=== PATIENT | female | born 1995 | race Two or more races ===

== ENCOUNTER 2017-05-31 09:18 | Emergency (ER) | payer OTHER ==
[2017-05-31 09:29] VITALS: RESP 16
[2017-05-31] MEDS ORDERED: ONDANSETRON 4 MG/2 ML VIAL IVP ONE (09:47)
[2017-05-31] MEDS ORDERED: fentaNYL 100 MCG/2 ML INJ IVP ONE (09:47)
[2017-05-31 09:52] LABS: % IMMATURE GRANULYOCYTES 0.3 % (0.0-1.1); ABSOLUTE IMMATURE GRANULOCYTES 0.04 10^3/uL (0.00-0.10); ADD DIFF? NO; ADD MORPH? NO; ADD SCAN? NO; ATYPICAL LYMPHOCYTE FLAG 0 (0-99); FRAGMENT RBC FLAG 0 (0-99); HEMATOCRIT 44.8 % (38.0-47.0); HEMOGLOBIN 16.3 g/dL (12.6-16.3); LEFT SHIFT FLG 0 (0-99); LIPEMIA HEMOLYSIS FLAG 90 (0-99); MEAN CELL HEMOGLOBIN 31.1 pg (27.9-34.1); MEAN CELL HEMOGLOBIN CONCENTR. 36.4 g/dL (32.4-36.7); MEAN CELL VOLUME 85.5 fL (81.5-99.8); MEAN PLATELET VOLUME 11.3 fL (8.7-11.7); PLATELET CLUMPS FLAG 10 (0-99); PLATELET COUNT 223 10^3/uL (150-400); RED BLOOD CELL COUNT 5.24 10^6/uL (4.18-5.33)
[2017-05-31 10:06] LABS: ANION GAP 16 mEq/L (8-16); CALCIUM 9.5 mg/dL (8.5-10.4); CARBON DIOXIDE 17 mEq/l (22-31); CHLORIDE 107 mEq/L (97-110); CREATININE 0.6 mg/dL (0.6-1.0); GLOMERULAR FILTRATION RATE > 60; GLUCOSE 99 mg/dL (70-100); POTASSIUM 4.7 mEq/L (3.5-5.2); SODIUM 140 mEq/L (134-144)
[2017-05-31] MEDS ORDERED: NS 1,000 ML IV ONE (10:14)
[2017-05-31 10:44] LABS: COLOR YELLOW; LEUKOCYTE ESTERASE,URINE NEGATIVE (NEGATIVE); NITRITE,URINE NEGATIVE (NEGATIVE)
[2017-05-31 11:00] LABS: BACTERIA 3+ /hpf (NONE SEEN); MUCUS 3+ /lpf (NONE-1+); RBC,URINE 50-182 /hpf (0-3)
[2017-05-31] MEDS ORDERED: KETOROLAC 15 MG/1 ML SDV IVP ONE (11:00)
[2017-05-31 12:30] VITALS: BP 100/65; PULSE 68; O2SAT 99
[2017-05-31] MEDS ORDERED: TAMSULOSIN HCL 0.4 MG CAP PO ONE (12:47)
--- NOTE | 2017-05-31 12:51 | EDPHY ---
H & P Stated Complaint: RLQ pain x 6 days, - Personal History LMP (Females 10-55): Over 28 Days Ago Current Tetanus Diphtheria and Acellular Pertussis (TDAP): Yes - Medical/Surgical History Other PMH: asthma - Social History Smoking Status: Never smoked Time Seen by Provider: 05/31/17 09:39 HPI/ROS: CHIEF COMPLAINT: abdominal pain HISTORY OF PRESENT ILLNESS: 21-year-old female presents emergency department complaining of intermittent left lower quadrant and left flank pain x1 week. Patient states her pain comes and goes, this morning it came and is more severe than usual. Patient denies urinary frequency, urgency or dysuria, no hematuria. She reports nausea and vomiting from the pain. Pain is constant, no relief. She reports no appetite. She does feel chills today. Pt has no history of kidney stones, her father does. Patient denies vaginal discharge. She reports she is not sexually active. REVIEW OF SYSTEMS: A comprehensive 10 point review of systems is otherwise negative aside from elements mentioned in the history of present illness. (Shwetha Cummins) - Physical Exam Exam: Physical Exam Gen: Alert and Oriented, crying, grimacing HEENT: PERRL, moist mucous membranes NECK: no meningismus CV: regular rate and regular rhythm PULM: CTAB, no wheezes ABDOMEN: soft, left lower quadrant tenderness to palpation, BS present BACK: Left CVA tenderness NEURO: Neurologically grossly intact EXTREMITIES: normal appearing SKIN: no rash or break in skin on exposed skin PSYCH: answers questions appropriately. (Shwetha Cummins) Constitutional: Initial Vital Signs Temperature (C) 36.4 C 05/31/17 09:22 Heart Rate 78 05/31/17 09:22 Respiratory Rate 16 05/31/17 09:22 Blood Pressure 135/71 H 05/31/17 09:22 O2 Sat (%) 100 05/31/17 09:22 O2 Delivery Mode Room Air Allergies/Adverse Reactions: No Known Allergies Allergy (Unverified 05/31/17 09:21) Home Medications: Medication Instructions Recorded Cephalexin [Keflex] 500 mg PO BID 7 Days 05/31/17 Hydrocodone/APAP 5/325 [[place] 1 tab PO Q4H PRN #14 tab 05/31/17 5/325] Mometasone/Formoterol [Dulera 200 05/31/17 Mcg/5 Mcg Inhaler] Ondansetron Odt [Zofran Odt] 4 mg PO Q6-8PRN PRN #10 tab 05/31/17 Tamsulosin HCl [Flomax 0.4 MG (*)] 0.4 mg PO DAILY #7 cap 05/31/17 Medical Decision Making - Diagnostics Imaging: Discussed imaging studies w/ call center agent Radiologist ED Course/Re-evaluation: IV established, CBC, chemistry panel and urinalysis ordered. Patient is given 4 mg of Zofran and 50 mcg of fentanyl p.o., kidney function tests are normal and patient is given 15 mg of IV Toradol. Urinalysis shows 50-182 red blood cells. I am suspicious the patient has a kidney stone. CT KUB ordered. Patient has a 4 mm stone in her left UPJ with mild hydronephrosis. Urinalysis shows 5-10 WBCs. Patient will be treated with Keflex. I will send her home with a prescription for [place], Flomax and Zofran. She has been referred to the urologist. She will call to schedule an appointment at 1st available appointment on Friday. She is given return precautions for any fevers, pain that is not controlled, unable to urinate. Patient is discharged with a urine strainer. (Shwetha Cummins) Differential Diagnosis: The differential diagnosis for the patient's flank pain included but was not limited to musculoskeletal causes, kidney stone, pyelonephritis, shingles, diverticulitis, appendicitis, and aortic aneurysm. (Shwetha Cummins) - Data Points Laboratory Results: Laboratory Results 05/31/17 09:45 05/31/17 09:45 Medications Given: Discontinued Medications Fentanyl (Sublimaze) 50 mcg IVP EDNOW ONE Stop: 05/31/17 09:48 Last Admin: 05/31/17 10:04 Dose: 50 mcg Sodium Chloride (Ns) 1,000 mls @ 0 mls/hr IV EDNOW ONE; Wide Open PRN Reason: Protocol Stop: 05/31/17 10:15 Last Admin: 05/31/17 10:17 Dose: 1,000 mls Ketorolac Tromethamine (Toradol) 15 mg IVP EDNOW ONE Stop: 05/31/17 11:01 Last Admin: 05/31/17 11:23 Dose: 15 mg Ondansetron HCl (Zofran) 4 mg IVP EDNOW ONE Stop: 05/31/17 09:48 Last Admin: 05/31/17 10:04 Dose: 4 mg Tamsulosin HCl (Flomax) 0.4 mg PO EDNOW ONE Stop: 05/31/17 12:48 Last Admin: 05/31/17 12:57 Dose: 0.4 mg Departure - Departure Disposition: Home, Routine, Self-Care Clinical Impression: Left ureteral stone Condition: Good Instructions: Kidney Stones (ED), How to Strain Your Urine (ED) Additional Instructions: Kidney stone: Take your antibiotic as prescribed. Take hydrocodone as needed for severe pain. Use Zofran as needed for nausea. Take ibuprofen 600 mg every 6-8 hours as needed for moderate pain. This will also help with inflammation. Take Flomax as directed. Followup with urology as directed for symptoms not improving. Strain urine. Return to the emergency department if you have worsening pain, fevers, persistent vomiting, or other concerns. Referrals: Felton Caputo MD [Medical Doctor] - As per Instructions (Urologist on-call) Prescriptions: Cephalexin [Keflex] 500 mg PO BID 7 Days Hydrocodone/APAP 5/325 [[place] 5/325] 1 tab PO Q4H PRN #14 tab PRN Reason: Pain, Moderate Ondansetron Odt [Zofran Odt] 4 mg PO Q6-8PRN PRN #10 tab PRN Reason: Nausea/Vomiting, Can'T Take Po Tamsulosin HCl [Flomax 0.4 MG (*)] 0.4 mg PO DAILY #7 cap
[2017-05-31 13:17] VITALS: TEMP 98.2
== END 2017-05-31 13:17 | disposition home or self-care (01) ==
DX: N20.1 Calculus of ureter (principal); J45.909 Unspecified asthma, uncomplicated; E86.9 Volume depletion, unspecified
CPT/HCPCS: 96374; J1885; J2405; J3010

== ENCOUNTER 2019-01-12 09:08 | Inpatient (IN) | payer OTHER ==
[2019-01-12] MEDS ORDERED: HALOPERIDOL LACT 5 MG/ML INJ IVP ONE (09:22)
[2019-01-12] MEDS ORDERED: NS 1,000 ML IV ONE ×3 (09:22→15:36)
--- NOTE | 2019-01-12 09:25 | EDPHY ---
H & P Stated Complaint: L flank/Abd pain Time Seen by Provider: 01/12/19 09:19 HPI/ROS: CHIEF COMPLAINT: Abdominal pain, flank pain since this morning HISTORY OF PRESENT ILLNESS: 23-year-old female male with prior history of nephrolithiasis with spontaneous passage, arrives via private vehicle complaining of acute left flank and abdominal pain that started approximately 4: 00 a.m. today. She initially went to Urgent Care was referred to the ER for further evaluation. Patient also notes increase in urinary frequency within the past 1-2 days. Positive nausea vomiting. Positive retching. Denies: Rash, urinary abnormality, fever, chills, flu-like symptoms, recent illness, dysuria REVIEW OF SYSTEMS: 10 systems reviewed and negative with the exception of the elements mentioned in the history of present illness PAST MEDICAL & SURGICAL HISTORY: prior nephrolithiasis with spontaneous passage. No urologic follow-up. SOCIAL HISTORY:Nonsmoker. No drug use. PHYSICAL EXAM (Prior to examination, patient consented to physical exam, hands were washed and my usual and customary physical exam procedures followed) 1) GENERAL: Well-developed, well-nourished, retching, hyperventilating, crying, moaning, screaming. 2) HEAD: Normocephalic, atraumatic 3) HEENT: Pupils equal, round, reactive to light bilaterally. Sclera anicteric. 4) NECK: Full range of motion, no meningeal signs. 5) LUNGS: Clear auscultation bilaterally, no wheezes, no rhonchi, no retractions. 6) HEART: Regular rate and rhythm, no murmur, no heave, no gallop. 7) ABDOMEN: No guarding, no rebound, no focal tenderness, negative McBurney's, negative Irizarry's, negative Rovsing's, negative peritoneal sign, I am unable to elicit any abdominal pain on exam 8) MUSCULOSKELETAL: Moving all extremities, no focal areas of tenderness, no obvious trauma. No peripheral edema or discoloration. 9) BACK: Positive left CVA tenderness which elicits quite a bit of discomfort. No midline vertebral tenderness, no fluctuance, no step-off, no obvious trauma , no visual or palpable abnormality. 10) SKIN: No rash, no petechiae. 11) Psychiatric: Patient is oriented X 3, there is no agitation. DIFFERENTIAL DIAGNOSIS: In no particular order including but not limited to nephrolithiasis, pyelonephritis, perinephric abscess, ovarian pathology, ectopic - Personal History LMP (Females 10-55): Extended Cycle BCP/Inj Current Tetanus Diphtheria and Acellular Pertussis (TDAP): Yes - Medical/Surgical History Hx Asthma: No Hx Chronic Respiratory Disease: No Hx Diabetes: No Hx Cardiac Disease: No Hx Renal Disease: No Hx Cirrhosis: No Hx Alcoholism: No Hx HIV/AIDS: No Hx Splenectomy or Spleen Trauma: No Other PMH: asthma, kidney stones. - Social History Smoking Status: Never smoked Constitutional: Initial Vital Signs Temperature (C) 36.6 C 01/12/19 09:11 Heart Rate 84 01/12/19 09:11 Respiratory Rate 24 H 01/12/19 09:11 Blood Pressure 123/71 H 01/12/19 09:11 O2 Sat (%) 99 01/12/19 09:11 O2 Delivery Mode Room Air Allergies/Adverse Reactions: No Known Allergies Allergy (Verified 01/12/19 15:20) Home Medications: Medication Instructions Recorded Albuterol Sulfate [ALBUTEROL 1.25 mg IH HS 01/12/19 SULFATE 1.25 MG/3 ML] Albuterol Sulfate [Albuterol 1 puffs IH DAILY 01/12/19 Sulfate Hfa] Budesonide/Formoterol 160/4.5 1 puffs IH DAILY 01/12/19 [Symbicort 160-4.5 Mcg Inh (*)] D-Mannose [Mannxtra] 300 gm PO ONCE PRN 01/12/19 Ethinyl Estradiol/Drospirenone 1 tab PO HS 01/12/19 [[place] 3 mg-0.03 mg Tablet] Famotidine [Pepcid 20 MG (*)] 20 mg PO DAILY PRN 01/12/19 Lisdexamfetamine Dimesylate 30 mg PO DAILY PRN 01/12/19 [Vyvanse] Simethicone [Gas-X] 125 mg PO DAILY PRN 01/12/19 Medical Decision Making - Diagnostics Imaging Results: Imaging Impressions Abdomen/Pelvis CT 01/12/19 10:53 Impression: 1. 5 mm proximal left ureteral calculus resulting in moderate left hydronephrosis. 2. Bilateral nephrolithiasis. Findings discussed with Emergency Department physician assistant chief train dispatcher, Genesis Rooney on 01/12/2019, 11:33. Attention: This CT examination is specifically designed to evaluate patients who are clinically suspected of having acute obstructive uropathy. This examination does not use radiographic contrast, and as such, provides only a limited evaluation of the abdomen, pelvis and retroperitoneum. If there is further clinical suspicion for pathological conditions other than obstructive uropathy, a complete CT evaluation of the abdomen and pelvis utilizing intravenous, oral, and rectal contrast should be considered. Images reviewed myself ED Course/Re-evaluation: 9:23 a.m.: Examination of the patient is limited at this time as she is retching, crying, hyperventilating, guarding her abdomen will not allow me to palpate her abdomen. Will administer analgesia and re-evaluate. Care of patient under supervision of secondary supervising physician Dr Rosalee Rousseau whom I discussed case. 9:47 a.m.: Nursing staff unable to establish IV access. Patient remains uncomfortable, retching, crying, hyperventilating. She will not allow me to examine her abdomen. I recommended intranasal Ativan which she is agreeable with. 10:15 a.m.: Re-evaluation, patient more calm with intranasal Ativan. She allows me to examine her abdomen which is soft no guarding no rebound. Negative McBurney's. Negative Irizarry's. She has continued left CVA tenderness on exam. 10:45 a.m.: Serum laboratory studies are becoming available at this time. There was a delay due to difficulty in establishing IV access. At this time test is negative. This is the only serum study available at this time. Will obtain CT abdomen and pelvis without contrast for possible nephrolithiasis history given her history of nephrolithiasis. Patient unable provide urine sample at this time. Receiving IV fluids 11:50 a.m.: Re-evaluation, patient is sleeping , easily woken. Patient unable provide urine sample at this time. Receiving IV fluids. Patient noted to have elevated white blood cell count which may be secondary to acute pyelonephritis, may be secondary to acute neutrophil demargination the presence of severe pain, retching when blood work was drawn. 12:30 p.m.: Re-evaluation, patient is sleeping, easily woken. Patient unable provide urine sample at this time. Receiving IV fluids 1:20 p.m.: Re-evaluation, patient is sleeping, easily awoken. Requesting further analgesia. Re-evaluation, she has continued positive CVA tenderness on the left side. She is ready to provide a urine sample. 2:40 p.m.: Patient's urinalysis results positive for leukocytes, nitrates, 50- 182 WBCs. She is complaining of continued pain. White count [id number]. Recommended admission to hospital for pain control, antibiotics for suspected pyelonephritis with concurrent ureterolithiasis and nephrolithiasis. Will consult Urology and hospitalist 2:50 p.m.: Consultation with hospitalist is. Awaiting urology call back. 3:16 p.m.: Consultation with on-call Urology Dr. Sweta Phillip who recommends percutaneous nephrostomy tube via interventional Radiology and he will consult for Urology. - Data Points Laboratory Results: Laboratory Results 01/12/19 10:30 01/12/19 10:30 01/12/19 01/12/19 01/12/19 11:09 10:30 10:30 WBC 19.44 10^3/uL H 10^3/uL (3.80-9.50) RBC 4.61 10^6/uL 10^6/uL (4.18-5.33) Hgb 14.3 g/dL g/dL (12.6-16.3) POC Hgb 13.9 gm/dL gm/dL (12.6-16.3) Hct 41.5 % % (38.0-47.0) POC Hct 41 % % (38-47) MCV 90.0 fL fL (81.5-99.8) MCH 31.0 pg pg (27.9-34.1) MCHC 34.5 g/dL g/dL (32.4-36.7) RDW 13.2 % % (11.5-15.2) Plt Count 257 10^3/uL 10^3/uL (150-400) MPV 10.3 fL fL (8.7-11.7) Neut % (Auto) 87.3 % H % (39.3-74.2) Lymph % (Auto) 7.2 % L % (15.0-45.0) [place] % (Auto) 3.9 % L % (4.5-13.0) Eos % (Auto) 0.7 % % (0.6-7.6) Baso % (Auto) 0.3 % % (0.3-1.7) Nucleat RBC Rel Count 0.0 % % (0.0-0.2) Absolute Neuts (auto) 17.00 10^3/uL H 10^3/uL (1.70-6.50) Absolute Lymphs (auto) 1.40 10^3/uL 10^3/uL (1.00-3.00) Absolute Monos (auto) 0.75 10^3/uL 10^3/uL (0.30-0.80) Absolute Eos (auto) 0.13 10^3/uL 10^3/uL (0.03-0.40) Absolute Basos (auto) 0.05 10^3/uL 10^3/uL (0.02-0.10) Absolute Nucleated RBC 0.00 10^3/uL 10^3/uL (0-0.01) Immature Gran % 0.6 % % (0.0-1.1) Immature Gran # 0.11 10^3/uL H 10^3/uL (0.00-0.10) POC Sodium 140 mEq/L mEq/L (135-145) Sodium 134 mEq/L L mEq/L (135-145) POC Potassium 4.2 mEq/L mEq/L (3.3-5.0) Potassium 5.1 mEq/L mEq/L (3.5-5.2) POC Chloride 107 mEq/L mEq/L (97-110) Chloride 108 mEq/L mEq/L (97-110) Carbon Dioxide 15 mEq/l L mEq/l (22-31) POC Total CO2 18 mEq/L L mEq/L (22-31) Anion Gap 11 mEq/L mEq/L (6-14) POC BUN 8 mg/dL mg/dL (7-23) BUN 9 mg/dL mg/dL (7-23) Creatinine 0.7 mg/dL mg/dL (0.6-1.0) POC Creatinine 0.7 mg/dL mg/dL (0.6-1.0) Estimated GFR > 60 Glucose 103 mg/dL H mg/dL (70-100) POC Glucose 99 mg/dL mg/dL (70-100) Calcium 9.4 mg/dL mg/dL (8.5-10.4) Total Bilirubin 1.5 mg/dL H mg/dL (0.1-1.4) Conjugated Bilirubin 0.9 mg/dL H mg/dL (0.0-0.5) Unconjugated Bilirubin 0.6 mg/dL mg/dL (0.0-1.1) AST 45 IU/L IU/L (14-46) ALT 20 IU/L IU/L (9-52) Alkaline Phosphatase 70 IU/L IU/L (38-126) Total Protein 8.0 g/dL g/dL (6.3-8.2) Albumin 4.3 g/dL g/dL (3.5-5.0) Lipase 53 IU/L IU/L (23-300) Beta HCG, Qual Specimen Hemolysis 183 Urine Color Urine Appearance Urine pH Ur Specific [place] Urine Protein Urine Ketones Urine Blood Urine Nitrate Urine Bilirubin Urine Urobilinogen Ur Leukocyte Esterase Urine RBC Urine WBC Ur Epithelial Cells Urine Bacteria Urine Mucus Ur Culture Indicated? Urine Glucose 01/12/19 01/12/19 01/12/19 09:41 09:41 09:25 WBC RBC Hgb POC Hgb Hct POC Hct MCV MCH MCHC RDW Plt Count MPV Neut % (Auto) Lymph % (Auto) [place] % (Auto) Eos % (Auto) Baso % (Auto) Nucleat RBC Rel Count Absolute Neuts (auto) Absolute Lymphs (auto) Absolute Monos (auto) Absolute Eos (auto) Absolute Basos (auto) Absolute Nucleated RBC Immature Gran % Immature Gran # POC Sodium Sodium POC Potassium Potassium POC Chloride Chloride Carbon Dioxide POC Total CO2 Anion Gap POC BUN BUN Creatinine POC Creatinine Estimated GFR Glucose POC Glucose Calcium Total Bilirubin Conjugated Bilirubin Unconjugated Bilirubin AST ALT Alkaline Phosphatase Total Protein Albumin Lipase Beta HCG, Qual NEGATIVE Specimen Hemolysis Urine Color YELLOW Urine Appearance HAZY Urine pH 7.0 (5.0-7.5) Ur Specific [place] 1.014 (1.002-1.030) Urine Protein NEGATIVE (NEGATIVE) Urine Ketones 1+ H (NEGATIVE) Urine Blood 2+ H (NEGATIVE) Urine Nitrate POSITIVE H (NEGATIVE) Urine Bilirubin NEGATIVE (NEGATIVE) Urine Urobilinogen NEGATIVE EU EU (0.2-1.0) Ur Leukocyte Esterase 2+ H (NEGATIVE) Urine RBC 10-15 /hpf H /hpf (0-3) Urine WBC 50-182 /hpf H /hpf (0-3) Ur Epithelial Cells TRACE /lpf /lpf (NONE-1+) Urine Bacteria 1+ /hpf H /hpf (NONE SEEN) Urine Mucus 1+ /lpf /lpf (NONE-1+) Ur Culture Indicated? Pending INDICATED H (NI) Urine Glucose NEGATIVE (NEGATIVE) Medications Given: Discontinued Medications Haloperidol Lactate (Haldol Injection) 2.5 mg IVP EDNOW ONE Stop: 01/12/19 09:23 Last Admin: 01/12/19 09:38 Dose: 2.5 mg Sodium Chloride (Ns) 1,000 mls @ 0 mls/hr IV ONCE ONE PRN Reason: Wide Open Stop: 01/12/19 09:23 Last Admin: 01/12/19 09:39 Dose: 1,000 mls Lidocaine HCl 60 mg/ Sodium (Chloride) 106 mls @ 600 mls/hr IV EDNOW ONE Stop: 01/12/19 11:11 Last Admin: 01/12/19 11:51 Dose: 106 mls Sodium Chloride (Ns) 1,000 mls @ 3,000 mls/hr IV EDNOW ONE Stop: 01/12/19 11:20 Last Admin: 01/12/19 11:25 Dose: 1,000 mls Ketorolac Tromethamine (Toradol) 15 mg IVP EDNOW ONE Stop: 01/12/19 11:02 Last Admin: 01/12/19 11:24 Dose: 15 mg Lorazepam (Ativan Injection) 2 mg NASAL EDNOW ONE Stop: 01/12/19 09:48 Last Admin: 01/12/19 09:50 Dose: 2 mg Oxycodone/Acetaminophen (Percocet 5/325) 1 tab PO EDNOW ONE Stop: 01/12/19 13:39 Last Admin: 01/12/19 13:40 Dose: 1 tab Tamsulosin HCl (Flomax) 0.4 mg PO EDNOW ONE Stop: 01/12/19 13:29 Last Admin: 01/12/19 13:40 Dose: 0.4 mg Point of Care Test Results: Chemistry 01/12/19 11:09 POC Sodium 140 mEq/L mEq/L (135-145) POC Potassium 4.2 mEq/L mEq/L (3.3-5.0) POC Chloride 107 mEq/L mEq/L (97-110) POC Total CO2 18 mEq/L L mEq/L (22-31) POC BUN 8 mg/dL mg/dL (7-23) POC Creatinine 0.7 mg/dL mg/dL (0.6-1.0) POC Glucose 99 mg/dL mg/dL (70-100) ISTAT H&H 01/12/19 11:09 POC Hgb 13.9 gm/dL gm/dL (12.6-16.3) POC Hct 41 % % (38-47) Departure - Departure Disposition: [facility] Inpatient Acute Clinical Impression: Acute pyelonephritis, Ureterolithiasis Condition: Fair
[2019-01-12] MEDS ORDERED: LORazepam 2 MG/ML INJ NASAL ONE (09:47)
[2019-01-12] MEDS ORDERED: LIDOCAINE IV ONE (11:01)
[2019-01-12] MEDS ORDERED: KETOROLAC 15 MG/1 ML SDV IVP ONE (11:01)
[2019-01-12] MEDS ORDERED: NS IV ONE (11:01)
[2019-01-12 11:22] LABS: PLATELET COUNT 257 10^3/uL (150-400)
[2019-01-12] MEDS ORDERED: TAMSULOSIN HCL 0.4 MG CAP PO ONE (13:28)
[2019-01-12] MEDS ORDERED: OXYCODONE/APAP 5/325 TAB PO ONE (13:38)
[2019-01-12] MEDS ORDERED: ONDANSETRON 4 MG/2 ML VIAL IVP PRN (15:05)
[2019-01-12] MEDS ORDERED: ONDANSETRON DISINTEGRATING 4 MG TAB PO PRN (15:05)
[2019-01-12] MEDS ORDERED: NS 1,000 ML IV SCH ×2 (15:15→17:15)
[2019-01-12] MEDS ORDERED: NS 1,800 ML IV ONE (15:47)
--- NOTE | 2019-01-12 15:50 | PDGENHP ---
<Karrie Amador - Last Filed: 01/12/19 16:15> History and Physical - Chief Complaint Acute left sided flank pain - History of Present Illness 23 y/o female w/hx of nephrolithiasis w/spontaneous passage (last one presented here in 2016) and asthma presents w/acute abdominal and left sided flank pain. Onset was approximately 4:00am. Endorses nausea, vomiting, severe pain. Normal urination, no dysuria. Normal bowel movements. Denies CP, palpitations, fever or chills. Abdominal CT w/o contrast demonstrate 5 mm proximal left ureteral calculus resulting in moderate left hydronephrosis and bilateral nephrolithiasis. She is being admitted for treatment and monitoring of renal stone and pyelonephritis. History Information - Allergies/Home Medication List Allergies/Adverse Reactions: No Known Allergies Allergy (Verified 01/12/19 15:20) Home Medications: Albuterol Sulfate [Albuterol Sulfate Hfa] 1 puffs IH DAILY 01/12/19 [Last Taken 01/11/19] Albuterol [Proventil Neb] 3 ml IH HS 01/12/19 [Last Taken Unknown] Budesonide/Formoterol 160/4.5 [Symbicort 160-4.5 Mcg Inh (*)] 1 puffs IH DAILY 01/12/19 [Last Taken 01/11/19] D-Mannose [Mannxtra] 300 gm PO ONCE PRN 01/12/19 [Last Taken Unknown] Ethinyl Estradiol/Drospirenone [[place] 3 mg-0.03 mg Tablet] 1 tab PO HS [Last Taken 01/11/19 21:00] Famotidine [Pepcid 20 MG (*)] 20 mg PO DAILY PRN 01/12/19 [Last Taken 01/09/19] Lisdexamfetamine Dimesylate [Vyvanse] 30 mg PO DAILY PRN 01/12/19 [Last Taken ] Simethicone [Gas-X] 125 mg PO DAILY PRN 01/12/19 [Last Taken 01/09/19] I have personally reviewed and updated: family history, medical history, social history, surgical history - Past Medical History asthma Additional medical history: Hx of nephroliathisis w/spontaneous passage - Surgical History Reports: no pertinent surgical hx - Family History Additional family history: Father w/nephroliathisis - Social History Smoking Status: Never smoked Alcohol Use: Occasionally Drug Use: None Additional social history: Recently graduated from [employer] in September. Had 3 majors: psychology, communication, engineering. Currently job searching. Review of Systems Review of Systems: ROS: 10pt was reviewed & negative except for what was stated in HPI & below Physical Exam Physical Exam: Lab data and imaging reviewed. WBC: 19.44 w/ left shift Na: 134 K: 5.1 BUN/Cr: 9/0.7 UA: + ketones, blood, nitrate, leukocyte esterase, RBC, WBC, bacteria Temp Pulse Resp BP Pulse Ox 37 C 77 16 118/78 98 01/12/19 13:41 01/12/19 13:41 01/12/19 13:41 01/12/19 13:41 01/12/19 13:41 Constitutional: uncomfortable (Found clutching her abdomen) Eyes: PERRL, anicteric sclera, EOMI Ears, Nose, Mouth, Throat: moist mucous membranes, hearing normal, ears appear normal, no oral mucosal ulcers Cardiovascular: regular rate and rhythym, no murmur, rub, or gallop, tachycardia , No edema Peripheral Pulses: 2+: dorsalis-pedis (R), dorsalis-pedis (L) Respiratory: reduced air movement, other (Hyperventilating) Gastrointestinal: no palpable masses, guarding, other (Hypoactive BS) Genitourinary: other (L +CVAT) Skin: warm, normal color, no rashes or abrasions, no fluctuance, no induration, No mottled Musculoskeletal: full muscle strength, no muscle tenderness, normal joint ROM, no joint effusions Neurologic: AAOx3, sensation intact bilaterally, CN II-XII Intact Psychiatric: interacting appropriately, not anxious, not encephalopathic, thought process linear Lymph, Heme, Immunologic: no cervical LAD, no supraclavicular LAD Lab Data & Imaging Review 01/12/19 10:30 01/12/19 10:30 WBC 19.44 10^3/uL (3.80-9.50) H 01/12/19 10:30 RBC 4.61 10^6/uL (4.18-5.33) 01/12/19 10:30 Hgb 14.3 g/dL (12.6-16.3) 01/12/19 10:30 POC Hgb 13.9 gm/dL (12.6-16.3) 01/12/19 11:09 Hct 41.5 % (38.0-47.0) 01/12/19 10:30 POC Hct 41 % (38-47) 01/12/19 11:09 MCV 90.0 fL (81.5-99.8) 01/12/19 10:30 MCH 31.0 pg (27.9-34.1) 01/12/19 10:30 MCHC 34.5 g/dL (32.4-36.7) 01/12/19 10:30 RDW 13.2 % (11.5-15.2) 01/12/19 10:30 Plt Count 257 10^3/uL (150-400) 01/12/19 10:30 MPV 10.3 fL (8.7-11.7) 01/12/19 10:30 Neut % (Auto) 87.3 % (39.3-74.2) H 01/12/19 10:30 Lymph % (Auto) 7.2 % (15.0-45.0) L 01/12/19 10:30 [place] % (Auto) 3.9 % (4.5-13.0) L 01/12/19 10:30 Eos % (Auto) 0.7 % (0.6-7.6) 01/12/19 10:30 Baso % (Auto) 0.3 % (0.3-1.7) 01/12/19 10:30 Nucleat RBC Rel Count 0.0 % (0.0-0.2) 01/12/19 10:30 Absolute Neuts (auto) 17.00 10^3/uL (1.70-6.50) H 01/12/19 10:30 Absolute Lymphs (auto) 1.40 10^3/uL (1.00-3.00) 01/12/19 10:30 Absolute Monos (auto) 0.75 10^3/uL (0.30-0.80) 01/12/19 10:30 Absolute Eos (auto) 0.13 10^3/uL (0.03-0.40) 01/12/19 10:30 Absolute Basos (auto) 0.05 10^3/uL (0.02-0.10) 01/12/19 10:30 Absolute Nucleated RBC 0.00 10^3/uL (0-0.01) 01/12/19 10:30 Immature Gran % 0.6 % (0.0-1.1) 01/12/19 10:30 Immature Gran # 0.11 10^3/uL (0.00-0.10) H 01/12/19 10:30 VBG Lactic Acid 2.4 mmol/L (0.7-2.1) H 01/12/19 14:32 POC Sodium 140 mEq/L (135-145) 01/12/19 11:09 Sodium 134 mEq/L (135-145) L 01/12/19 10:30 POC Potassium 4.2 mEq/L (3.3-5.0) 01/12/19 11:09 Potassium 5.1 mEq/L (3.5-5.2) 01/12/19 10:30 POC Chloride 107 mEq/L (97-110) 01/12/19 11:09 Chloride 108 mEq/L (97-110) 01/12/19 10:30 Carbon Dioxide 15 mEq/l (22-31) L 01/12/19 10:30 POC Total CO2 18 mEq/L (22-31) L 01/12/19 11:09 Anion Gap 11 mEq/L (6-14) 01/12/19 10:30 POC BUN 8 mg/dL (7-23) 01/12/19 11:09 BUN 9 mg/dL (7-23) 01/12/19 10:30 Creatinine 0.7 mg/dL (0.6-1.0) 01/12/19 10:30 POC Creatinine 0.7 mg/dL (0.6-1.0) 01/12/19 11:09 Estimated GFR > 60 01/12/19 10:30 Glucose 103 mg/dL (70-100) H 01/12/19 10:30 POC Glucose 99 mg/dL (70-100) 01/12/19 11:09 Calcium 9.4 mg/dL (8.5-10.4) 01/12/19 10:30 Total Bilirubin 1.5 mg/dL (0.1-1.4) H 01/12/19 10:30 Conjugated Bilirubin 0.9 mg/dL (0.0-0.5) H 01/12/19 10:30 Unconjugated Bilirubin 0.6 mg/dL (0.0-1.1) 01/12/19 10:30 AST 45 IU/L (14-46) 01/12/19 10:30 ALT 20 IU/L (9-52) 01/12/19 10:30 Alkaline Phosphatase 70 IU/L (38-126) 01/12/19 10:30 Total Protein 8.0 g/dL (6.3-8.2) 01/12/19 10:30 Albumin 4.3 g/dL (3.5-5.0) 01/12/19 10:30 Lipase 53 IU/L (23-300) 01/12/19 10:30 Beta HCG, Qual NEGATIVE 01/12/19 09:25 Specimen Hemolysis 183 01/12/19 10:30 Urine Color YELLOW 01/12/19 09:41 Urine Appearance HAZY 01/12/19 09:41 Urine pH 7.0 (5.0-7.5) 01/12/19 09:41 Ur Specific [place] 1.014 (1.002-1.030) 01/12/19 09:41 Urine Protein NEGATIVE (NEGATIVE) 01/12/19 09:41 Urine Ketones 1+ (NEGATIVE) H 01/12/19 09:41 Urine Blood 2+ (NEGATIVE) H 01/12/19 09:41 Urine Nitrate POSITIVE (NEGATIVE) H 01/12/19 09:41 Urine Bilirubin NEGATIVE (NEGATIVE) 01/12/19 09:41 Urine Urobilinogen NEGATIVE EU (0.2-1.0) 01/12/19 09:41 Ur Leukocyte Esterase 2+ (NEGATIVE) H 01/12/19 09:41 Urine RBC 10-15 /hpf (0-3) H 01/12/19 09:41 Urine WBC 50-182 /hpf (0-3) H 01/12/19 09:41 Ur Epithelial Cells TRACE /lpf (NONE-1+) 01/12/19 09:41 Urine Bacteria 1+ /hpf (NONE SEEN) H 01/12/19 09:41 Urine Mucus 1+ /lpf (NONE-1+) 01/12/19 09:41 Ur Culture Indicated? INDICATED (NI) H 01/12/19 09:41 Urine Glucose NEGATIVE (NEGATIVE) 01/12/19 09:41 Assessment & Plan Plan: 23 y/o female w/hx of nephrolithiasis and asthma presenting w/acute left sided flank pain and abdominal discomfort w/ nausea and vomiting. Imaging revealing left 5 mm proximal ureteral calculus resulting w/moderate hydronephrosis and bilateral nephrolithiasis. She has received the following medications during her ED stay for pain and infection: haldol, toradol, lidocaine, ativan, norco, flomax, 2L NS. She is hemodynamically stable w/ BP 118/78, HR 77, Resp 16, 37.0c, 98%RA. #Nephrolithiasis w/pyelonephritis: High white count (19.44) w/ left shift. Afebrile. -Urology has been consulted. I spoke to Dr. Moreno who is not in house however his colleague, Dr. Lala, is and will evaluate the pt later this afternoon for a most likely percutaneous nephrostomy tube procedure performed by IR. Dr. Sun has been contacted and is aware of pt and procedure. Hence, NPO for now. -Blood cultures/lactic acid pending -Levaquin IV received in ED; will cont this in AM -Pain management PO/IVP PRN -Urine strain -Received 2L NS; will cont IVF x 1 bag -Received flomax: cont in AM -Counseled pt on drinking plenty of water to which she admittedly reports not drinking nearly enough. Reports she normally drinks soda pop, juices or coffee. -CBC/CMP in AM #Asthma: on inhalers. Cont. Diet: NPO for procedure, regular diet after procedure VTE ppx: Low risk. Encourage OOB ad jocelyn, SCDs while in bed Code: Full Dispo: Admit to inpatient <Wilman Baig - Last Filed: 01/13/19 00:09> History and Physical - History of Present Illness History of Present Illness I have seen the patient, reviewed the chart and labs and agree alex Amador in her assessment and plan. Patient with pyelo and left hydro from ureteral calculus. Plan to given abx, consult IR for PCN, and urology. Review of Systems Review of Systems: Physical Exam Physical Exam: Temp Pulse Resp BP Pulse Ox 36.2 C 135 H 16 106/54 L 94 01/12/19 22:07 01/12/19 22:07 01/12/19 22:07 01/12/19 22:07 01/12/19 22:07 O2 (L/minute) 3 Lab Data & Imaging Review 01/12/19 19:10 01/12/19 10:30 WBC 19.44 10^3/uL (3.80-9.50) H 01/12/19 10:30 RBC 4.61 10^6/uL (4.18-5.33) 01/12/19 10:30 Hgb 14.3 g/dL (12.6-16.3) 01/12/19 10:30 POC Hgb 13.9 gm/dL (12.6-16.3) 01/12/19 11:09 Hct 36.3 % (38.0-47.0) L 01/12/19 19:10 POC Hct 41 % (38-47) 01/12/19 11:09 MCV 90.0 fL (81.5-99.8) 01/12/19 10:30 MCH 31.0 pg (27.9-34.1) 01/12/19 10:30 MCHC 34.5 g/dL (32.4-36.7) 01/12/19 10:30 RDW 13.2 % (11.5-15.2) 01/12/19 10:30 Plt Count 187 10^3/uL (150-400) 01/12/19 19:10 MPV 10.3 fL (8.7-11.7) 01/12/19 10:30 Neut % (Auto) 87.3 % (39.3-74.2) H 01/12/19 10:30 Lymph % (Auto) 7.2 % (15.0-45.0) L 01/12/19 10:30 [place] % (Auto) 3.9 % (4.5-13.0) L 01/12/19 10:30 Eos % (Auto) 0.7 % (0.6-7.6) 01/12/19 10:30 Baso % (Auto) 0.3 % (0.3-1.7) 01/12/19 10:30 Nucleat RBC Rel Count 0.0 % (0.0-0.2) 01/12/19 10:30 Absolute Neuts (auto) 17.00 10^3/uL (1.70-6.50) H 01/12/19 10:30 Absolute Lymphs (auto) 1.40 10^3/uL (1.00-3.00) 01/12/19 10:30 Absolute Monos (auto) 0.75 10^3/uL (0.30-0.80) 01/12/19 10:30 Absolute Eos (auto) 0.13 10^3/uL (0.03-0.40) 01/12/19 10:30 Absolute Basos (auto) 0.05 10^3/uL (0.02-0.10) 01/12/19 10:30 Absolute Nucleated RBC 0.00 10^3/uL (0-0.01) 01/12/19 10:30 Immature Gran % 0.6 % (0.0-1.1) 01/12/19 10:30 Immature Gran # 0.11 10^3/uL (0.00-0.10) H 01/12/19 10:30 PT 13.7 SEC (12.0-15.0) 01/12/19 19:10 INR 1.09 (0.83-1.16) 01/12/19 19:10 APTT 30.1 SEC (23.0-38.0) 01/12/19 19:10 VBG Lactic Acid 1.2 mmol/L (0.7-2.1) 01/12/19 19:10 POC Sodium 140 mEq/L (135-145) 01/12/19 11:09 Sodium 134 mEq/L (135-145) L 01/12/19 10:30 POC Potassium 4.2 mEq/L (3.3-5.0) 01/12/19 11:09 Potassium 5.1 mEq/L (3.5-5.2) 01/12/19 10:30 POC Chloride 107 mEq/L (97-110) 01/12/19 11:09 Chloride 108 mEq/L (97-110) 01/12/19 10:30 Carbon Dioxide 15 mEq/l (22-31) L 01/12/19 10:30 POC Total CO2 18 mEq/L (22-31) L 01/12/19 11:09 Anion Gap 11 mEq/L (6-14) 01/12/19 10:30 POC BUN 8 mg/dL (7-23) 01/12/19 11:09 BUN 9 mg/dL (7-23) 01/12/19 10:30 Creatinine 0.7 mg/dL (0.6-1.0) 01/12/19 10:30 POC Creatinine 0.7 mg/dL (0.6-1.0) 01/12/19 11:09 Estimated GFR > 60 01/12/19 10:30 Glucose 103 mg/dL (70-100) H 01/12/19 10:30 POC Glucose 99 mg/dL (70-100) 01/12/19 11:09 Calcium 9.4 mg/dL (8.5-10.4) 01/12/19 10:30 Total Bilirubin 1.5 mg/dL (0.1-1.4) H 01/12/19 10:30 Conjugated Bilirubin 0.9 mg/dL (0.0-0.5) H 01/12/19 10:30 Unconjugated Bilirubin 0.6 mg/dL (0.0-1.1) 01/12/19 10:30 AST 45 IU/L (14-46) 01/12/19 10:30 ALT 20 IU/L (9-52) 01/12/19 10:30 Alkaline Phosphatase 70 IU/L (38-126) 01/12/19 10:30 Total Protein 8.0 g/dL (6.3-8.2) 01/12/19 10:30 Albumin 4.3 g/dL (3.5-5.0) 01/12/19 10:30 Lipase 53 IU/L (23-300) 01/12/19 10:30 Beta HCG, Qual NEGATIVE 01/12/19 09:25 Specimen Hemolysis 183 01/12/19 10:30 Urine Color YELLOW 01/12/19 09:41 Urine Appearance HAZY 01/12/19 09:41 Urine pH 7.0 (5.0-7.5) 01/12/19 09:41 Ur Specific [place] 1.014 (1.002-1.030) 01/12/19 09:41 Urine Protein NEGATIVE (NEGATIVE) 01/12/19 09:41 Urine Ketones 1+ (NEGATIVE) H 01/12/19 09:41 Urine Blood 2+ (NEGATIVE) H 01/12/19 09:41 Urine Nitrate POSITIVE (NEGATIVE) H 01/12/19 09:41 Urine Bilirubin NEGATIVE (NEGATIVE) 01/12/19 09:41 Urine Urobilinogen NEGATIVE EU (0.2-1.0) 01/12/19 09:41 Ur Leukocyte Esterase 2+ (NEGATIVE) H 01/12/19 09:41 Urine RBC 10-15 /hpf (0-3) H 01/12/19 09:41 Urine WBC 50-182 /hpf (0-3) H 01/12/19 09:41 Ur Epithelial Cells TRACE /lpf (NONE-1+) 01/12/19 09:41 Urine Bacteria 1+ /hpf (NONE SEEN) H 01/12/19 09:41 Urine Mucus 1+ /lpf (NONE-1+) 01/12/19 09:41 Ur Culture Indicated? INDICATED (NI) H 01/12/19 09:41 Urine Glucose NEGATIVE (NEGATIVE) 01/12/19 09:41 Assessment & Plan Assessment: Acute pyelonephritis (Acute) Hydronephrosis concurrent with and due to calculi of kidney and ureter (Acute) Ureterolithiasis (Acute)
[2019-01-12] MEDS ORDERED: FAMOTIDINE 20 MG TAB PO PRN (16:10)
--- NOTE | 2019-01-12 16:19 | ASMTCMCOM ---
CM Note CM Note Notes: Chart reviewed for discharge planning purposes. 23 year old female admitted via ED with c/o pain, nausea and vomiting. Hx of nephrolithiasis in past with spontaneous passage and asthma. CM to follow for needs. Likely no needs at discharge, Plan: TBD Date Signed: 01/12/2019 04:18 PM Electronically Signed By:Michelle Nick RN
--- NOTE | 2019-01-12 17:03 | SOAPPROG ---
SOAP Progress Note Assessment/Plan: Assessment: Acute pyelonephritis Acute Hydronephrosis concurrent with and due to calculi of kidney and ureter Acute Ureterolithiasis Acute Plan: nephrostomy tube left, antibx, hydration, rx stone after pt improved 01/12/19 17:01 Subjective: left flank pain, rigors, retching vomitting, + stone hx, + family stone hx Objective: Vital Signs Temp Pulse Resp BP Pulse Ox 37.9 C 140 H 18 97/61 L 94 01/12/19 16:20 01/12/19 16:20 01/12/19 16:20 01/12/19 16:20 01/12/19 16:20 01/11/19 01/12/19 01/13/19 05:59 05:59 05:59 Intake Total 1999 Balance 1999 No Known Allergies Allergy (Verified 01/12/19 15:20) WBC 19.44 10^3/uL (3.80-9.50) H 01/12/19 10:30 RBC 4.61 10^6/uL (4.18-5.33) 01/12/19 10:30 Hgb 14.3 g/dL (12.6-16.3) 01/12/19 10:30 POC Hgb 13.9 gm/dL (12.6-16.3) 01/12/19 11:09 Hct 41.5 % (38.0-47.0) 01/12/19 10:30 POC Hct 41 % (38-47) 01/12/19 11:09 MCV 90.0 fL (81.5-99.8) 01/12/19 10:30 MCH 31.0 pg (27.9-34.1) 01/12/19 10:30 MCHC 34.5 g/dL (32.4-36.7) 01/12/19 10:30 RDW 13.2 % (11.5-15.2) 01/12/19 10:30 Plt Count 257 10^3/uL (150-400) 01/12/19 10:30 MPV 10.3 fL (8.7-11.7) 01/12/19 10:30 Neut % (Auto) 87.3 % (39.3-74.2) H 01/12/19 10:30 Lymph % (Auto) 7.2 % (15.0-45.0) L 01/12/19 10:30 [place] % (Auto) 3.9 % (4.5-13.0) L 01/12/19 10:30 Eos % (Auto) 0.7 % (0.6-7.6) 01/12/19 10:30 Baso % (Auto) 0.3 % (0.3-1.7) 01/12/19 10:30 Nucleat RBC Rel Count 0.0 % (0.0-0.2) 01/12/19 10:30 Absolute Neuts (auto) 17.00 10^3/uL (1.70-6.50) H 01/12/19 10:30 Absolute Lymphs (auto) 1.40 10^3/uL (1.00-3.00) 01/12/19 10:30 Absolute Monos (auto) 0.75 10^3/uL (0.30-0.80) 01/12/19 10:30 Absolute Eos (auto) 0.13 10^3/uL (0.03-0.40) 01/12/19 10:30 Absolute Basos (auto) 0.05 10^3/uL (0.02-0.10) 01/12/19 10:30 Absolute Nucleated RBC 0.00 10^3/uL (0-0.01) 01/12/19 10:30 Immature Gran % 0.6 % (0.0-1.1) 01/12/19 10:30 Immature Gran # 0.11 10^3/uL (0.00-0.10) H 01/12/19 10:30 APTT 27.5 SEC (23.0-38.0) 01/12/19 16:30 VBG Lactic Acid 2.4 mmol/L (0.7-2.1) H 01/12/19 14:32 POC Sodium 140 mEq/L (135-145) 01/12/19 11:09 Sodium 134 mEq/L (135-145) L 01/12/19 10:30 POC Potassium 4.2 mEq/L (3.3-5.0) 01/12/19 11:09 Potassium 5.1 mEq/L (3.5-5.2) 01/12/19 10:30 POC Chloride 107 mEq/L (97-110) 01/12/19 11:09 Chloride 108 mEq/L (97-110) 01/12/19 10:30 Carbon Dioxide 15 mEq/l (22-31) L 01/12/19 10:30 POC Total CO2 18 mEq/L (22-31) L 01/12/19 11:09 Anion Gap 11 mEq/L (6-14) 01/12/19 10:30 POC BUN 8 mg/dL (7-23) 01/12/19 11:09 BUN 9 mg/dL (7-23) 01/12/19 10:30 Creatinine 0.7 mg/dL (0.6-1.0) 01/12/19 10:30 POC Creatinine 0.7 mg/dL (0.6-1.0) 01/12/19 11:09 Estimated GFR > 60 01/12/19 10:30 Glucose 103 mg/dL (70-100) H 01/12/19 10:30 POC Glucose 99 mg/dL (70-100) 01/12/19 11:09 Calcium 9.4 mg/dL (8.5-10.4) 01/12/19 10:30 Total Bilirubin 1.5 mg/dL (0.1-1.4) H 01/12/19 10:30 Conjugated Bilirubin 0.9 mg/dL (0.0-0.5) H 01/12/19 10:30 Unconjugated Bilirubin 0.6 mg/dL (0.0-1.1) 01/12/19 10:30 AST 45 IU/L (14-46) 01/12/19 10:30 ALT 20 IU/L (9-52) 01/12/19 10:30 Alkaline Phosphatase 70 IU/L (38-126) 01/12/19 10:30 Total Protein 8.0 g/dL (6.3-8.2) 01/12/19 10:30 Albumin 4.3 g/dL (3.5-5.0) 01/12/19 10:30 Lipase 53 IU/L (23-300) 01/12/19 10:30 Beta HCG, Qual NEGATIVE 01/12/19 09:25 Specimen Hemolysis 183 01/12/19 10:30 Urine Color YELLOW 01/12/19 09:41 Urine Appearance HAZY 01/12/19 09:41 Urine pH 7.0 (5.0-7.5) 01/12/19 09:41 Ur Specific [place] 1.014 (1.002-1.030) 01/12/19 09:41 Urine Protein NEGATIVE (NEGATIVE) 01/12/19 09:41 Urine Ketones 1+ (NEGATIVE) H 01/12/19 09:41 Urine Blood 2+ (NEGATIVE) H 01/12/19 09:41 Urine Nitrate POSITIVE (NEGATIVE) H 01/12/19 09:41 Urine Bilirubin NEGATIVE (NEGATIVE) 01/12/19 09:41 Urine Urobilinogen NEGATIVE EU (0.2-1.0) 01/12/19 09:41 Ur Leukocyte Esterase 2+ (NEGATIVE) H 01/12/19 09:41 Urine RBC 10-15 /hpf (0-3) H 01/12/19 09:41 Urine WBC 50-182 /hpf (0-3) H 01/12/19 09:41 Ur Epithelial Cells TRACE /lpf (NONE-1+) 01/12/19 09:41 Urine Bacteria 1+ /hpf (NONE SEEN) H 01/12/19 09:41 Urine Mucus 1+ /lpf (NONE-1+) 01/12/19 09:41 Ur Culture Indicated? INDICATED (NI) H 01/12/19 09:41 Urine Glucose NEGATIVE (NEGATIVE) 01/12/19 09:41 Physical Exam - Physical Exam General Appearance: alert Neck: full range of motion, supple, normal inspection Respiratory: normal breath sounds, No respiratory distress Cardiac/Chest: tachycardia Abdomen: non-tender Back: CVA tenderness (mild left flank pain) Skin: warm/dry Neuro/Psych: alert, oriented x 3 ICD10 Worksheet Patient Problems: Problems Problem Status Onset Acute pyelonephritis Acute Hydronephrosis concurrent with and due to calculi of kidney and ureter Acute Ureterolithiasis Acute - ICD10 Problem Qualifiers (1) Hydronephrosis concurrent with and due to calculi of kidney and ureter
[2019-01-12] MEDS ORDERED: PROTAMINE SULFATE 50 MG/5 ML VIAL IVP PRN (17:06)
[2019-01-12] MEDS ORDERED: FLUMAZENIL 0.5 MG/5 ML MDV IVP PRN (17:06)
[2019-01-12] MEDS ORDERED: MEPERIDINE 25 MG/ML SYR IVP PRN (17:06)
[2019-01-12] MEDS ORDERED: NALOXONE HCL 0.4 MG/ML INJ IVP PRN (17:06)
[2019-01-12] MEDS ORDERED: HEPARIN 10,000 UNIT/10 ML MDV (1,000 UNIT/ML) IVP PRN (17:06)
[2019-01-12] MEDS ORDERED: GLUCAGON HCL 1 MG VIAL IVP PRN (17:06)
[2019-01-12] MEDS ORDERED: MIDAZOLAM 2 MG/2 ML VIAL IVP PRN (17:06)
[2019-01-12] MEDS ORDERED: ALTEPLASE 2 MG VIAL IVP PRN (17:06)
[2019-01-12] MEDS ORDERED: ceFAZolin 2 GM/DEXTROSE 100 ML IV ONE (17:06)
[2019-01-12] MEDS ORDERED: fentaNYL 100 MCG/2 ML INJ IVP PRN (17:06)
[2019-01-12] MEDS ORDERED: FLUMAZENIL 0.5 MG/5 ML MDV IVP ONE (17:14)
[2019-01-12] MEDS ORDERED: NALOXONE HCL 0.4 MG/ML INJ ONE (17:14)
[2019-01-12] MEDS ORDERED: MIDAZOLAM 2 MG/2 ML VIAL ONE (17:15)
[2019-01-12] MEDS ORDERED: fentaNYL 100 MCG/2 ML INJ ONE (17:15)
--- NOTE | 2019-01-12 17:29 | GCON ---
[f rep st] CONSULTATION ADMISSION DIAGNOSES: 1. Pyelonephritis. 2. Possible urosepsis. 3. Left ureteral calculus. 4. Hydronephrosis. 5. Bilateral nephrolithiasis. HISTORY OF PRESENT ILLNESS: This is a 23-year-old lady who had had previous history of kidney stones and she said a year ago, she was seen in the emergency room and had multiple stones and discharged h ome, but never passed a stone that she caught. She has a family history with her father having multi ple stones in the past. At the present time, she has had acute onset of flank pain, nausea, vomiting , rigors and an elevated white count and fevers, and she is admitted for hydration, pain control, ant ibiotics and treatment of the hydronephrosis and ureterolithiasis. ALLERGIES: She has no known allergies. HOME MEDICATIONS: Albuterol for asthma, budesonide and formoterol for asthma, [place], Pepcid and Vyv an[place]. PAST HISTORY: Asthma and kidney stones. PAST SURGICAL HISTORY: She has had no surgical treatment. SOCIAL HISTORY: Nonsmoker, occasional alcohol consumption. REVIEW OF SYSTEMS: Negative cardiac, GI, endocrine. Respiratory is positive for asthma and nephroli thiasis. PHYSICAL EXAMINATION: VITAL SIGNS: Stable. CHEST: Clear, unlabored breathing. ABDOMEN: Soft. N o rebound or guarding. Mild left flank pain noted. LOWER EXTREMITIES: Normal. GENERAL: She is al ert and oriented x3. At the present time, she is tachycardic and low-grade fever. White count of 19.44. Her creatinine is normal at 0.7. Sodium 134, CO2 of 15, potassium 5.1 and her lactic acid was 2.4, and calcium was 9.4. At the present time, she has a urine culture, blood cultures. She is to undergo a nephrostomy tube p lacement. Options for treatment evaluation have been: 1. Hydration with antibiotics. 2. Ureteroscopy with potential of creating worse sepsis. 3. Hydration, IV antibiotics, percutaneous nephrostomy tube drainage and then after she improves fro m her septic state, would be to have her undergo treatment of the stone. I have talked to her mother over the phone. Her father is not available and she is contemplating it, but at the present time, w magdy have discussed and outlined the options of shared decision-making is that plan on having the percut aneous nephrostomy tube placement, antibiotics, hydration and then address the stone at a later time. I tried to answer her questions to the best of my ability. She had 2 friends with her at the time during discussion and the nurse was in and out of the room at the time. During the discussion, her h eart rate was between 148 and 155 and blood pressure was sub 100. /[id number]/MODL
--- NOTE | 2019-01-12 17:46 | PDMN ---
Medical Necessity Medical necessity: Pt meets inpt criteria per MD order and MCG M-320, Renal Colic and Kidney Stones, inpt for nephrolithiasis w/pyelonephritis, imaging reveals 5 mm prox ureteral calculus resulting in moderate hydronephrosis and bilateral nephrolithiasis. Pt presented w/acute/severe abd and L sided flank pain, rigors, and N/V. Urology consult, Plan for NPO for nephrostomy tube placement, abx, rx stone after pt improved. PMHx includes nephrolithiasis and asthma. Anticipate>2MN for ongoing eval/management of above.
[2019-01-12] MEDS ORDERED: LIDOCAINE 1% 300 MG/30 ML SDV ONE (17:51)
[2019-01-12] MEDS ORDERED: IOPAMIDOL (ISOVUE-300) 100 ML BTL ONE (17:51)
--- NOTE | 2019-01-12 18:15 | PDPROPOC ---
Sedation Plan of Care Sedation Plan of Care: vital signs stable, mental status noted, patient educated of risks, benefits, alternatives, patient can tolerate sedation ASA Classification: ASA 3 Planned drugs: fentanyl, midazolam Mallampati Score: Class 2 Mallampati Reference Image: Patient passed 3-3-2 rule?: Yes
[2019-01-12 19:38] LABS: INR 1.09 (0.83-1.16); PROTIME(PATIENT) 13.7 SEC (12.0-15.0)
[2019-01-12] MEDS: HYDROmorphONE/DILAUDID 1 MG/ML INJ IVP PRN (19:57)
[2019-01-12] MEDS ORDERED: ALBUTEROL 3 ML DEYVIAL IH SCH (21:00)
[2019-01-12] MEDS: DROSPIRENONE PO SCH (21:34)
[2019-01-12] MEDS: ETHINYL ESTRADIOL PO SCH (21:34)
[2019-01-13] MEDS: HYDROmorphONE/DILAUDID 1 MG/ML INJ IVP PRN ×5 (00:06→21:29)
[2019-01-13 04:29] LABS: PLATELET COUNT 174 10^3/uL (150-400)
--- NOTE | 2019-01-13 08:24 | SOAPPROG ---
SOAP Progress Note Assessment/Plan: Assessment: Acute pyelonephritis Acute E. Coli with sepsis Hydronephrosis concurrent with and due to calculi of kidney and ureter Acute Ureterolithiasis Acute Plan: nephrostomy tube left, antibx, hydration, rx stone after pt improved, tenatively scheduled for 01/14/2019 01/13/19 16:51 Subjective: feeling well, no pain,no nausea, fever to 101+ today Objective: Vital Signs Temp Pulse Resp BP Pulse Ox 38.0 C 122 H 16 117/61 94 01/13/19 08:00 01/13/19 08:00 01/13/19 08:00 01/13/19 08:00 01/13/19 08:00 Microbiology 01/12/19 18:15 Gram Stain - Final Other - Aspirate Laboratory Results 01/13/19 04:18 01/13/19 04:18 01/12/19 01/13/19 01/14/19 05:59 05:59 05:59 Intake Total 4500 Output Total 1450 Balance 3050 PT 13.7 SEC (12.0-15.0) 01/12/19 19:10 INR 1.09 (0.83-1.16) 01/12/19 19:10 Physical Exam - Physical Exam General Appearance: alert, other (general facial swelling compared to admit date ) Neck: supple Respiratory: other (cough noted and plan for CXR to assess as possible pre op prep), No respiratory distress Cardiac/Chest: regular rate, rhythm Abdomen: soft Back: No CVA tenderness Skin: warm/dry Extremities: No calf tenderness Neuro/Psych: alert, oriented x 3 ICD10 Worksheet Patient Problems: Problems Problem Status Onset Acute pyelonephritis Acute Hydronephrosis concurrent with and due to calculi of kidney and ureter Acute Ureterolithiasis Acute - ICD10 Problem Qualifiers (1) Hydronephrosis concurrent with and due to calculi of kidney and ureter
[2019-01-13] MEDS: TAMSULOSIN HCL 0.4 MG CAP PO SCH (08:45)
[2019-01-13] MEDS: ACETAMINOPHEN 325 MG TAB PO PRN ×2 (08:46→15:21)
[2019-01-13] MEDS ORDERED: ALBUTEROL 60 PUFFS/8 GM MDI IH SCH (09:00)
[2019-01-13] MEDS: BUDESONIDE/FORMOTEROL 160/4.5 60 PUFFS/MDI IH SCH (09:09)
--- NOTE | 2019-01-13 15:21 | HOSPPROG ---
Hospitalist Progress Note Assessment/Plan: 23 y/o female w/hx of nephrolithiasis and asthma presenting w/acute left sided flank pain and abdominal discomfort w/ nausea and vomiting. Imaging revealing left 5 mm proximal ureteral calculus resulting w/moderate hydronephrosis and bilateral nephrolithiasis. #Nephrolithiasis w/pyelonephritis: High white count (19.44) w/ left shift. Afebrile. Tachycardic meeting SIRS criteria - CT on admission showing 5 mm proximal L ureteral calculus resulting in moderate L hydronephrosis - Urology consulted on admission, recommending PCN insertion, s/p IR procedure on 01/12, will remove stone during admission -Pain management PO/IVP PRN -Urine strain -Received 2L NS; will cont IVF -Received flomax: cont -Counseled pt on drinking plenty of water to which she admittedly reports not drinking nearly enough. Reports she normally drinks soda pop, juices or coffee. Sepsis - 11/14 to pyelonephritis as above - Blood cultures growing E Coli from admission, Urine cx growing GNR - S/p Levaquin on admission, will switch to Ceftriaxone, f/u culture data - Consult ID in the AM regarding bacteremia - Remains tachycardic this AM, will continue IVF at an increased rate overnight #Asthma: on inhalers. Cont. Diet: Regular diet after procedure VTE ppx: Low risk. Encourage OOB ad jocelyn, SCDs while in bed Code: Full Dispo: Pending clinical course Subjective: Pt reports some pain where PCN insertion Objective: Vital Signs Temp Pulse Resp BP Pulse Ox 37.1 C 110 H 16 123/69 H 95 01/13/19 11:27 01/13/19 11:27 01/13/19 11:27 01/13/19 11:27 01/13/19 11:27 Microbiology 01/12/19 18:15 Gram Stain - Final Other - [facility] Laboratory Results 01/13/19 04:18 01/13/19 04:18 01/12/19 01/13/19 01/14/19 05:59 05:59 05:59 Intake Total 4500 Output Total 1450 Balance 3050 PT 13.7 SEC (12.0-15.0) 01/12/19 19:10 INR 1.09 (0.83-1.16) 01/12/19 19:10 - Physical Exam Constitutional: no apparent distress Eyes: PERRL Ears, Nose, Mouth, Throat: moist mucous membranes Cardiovascular: tachycardia Respiratory: no respiratory distress Gastrointestinal: soft, non-tender abdomen Skin: warm Musculoskeletal: full muscle strength Neurologic: AAOx3 Psychiatric: interacting appropriately ICD10 Worksheet Patient Problems: Problems Problem Status Onset Acute pyelonephritis Acute Hydronephrosis concurrent with and due to calculi of kidney and ureter Acute Ureterolithiasis Acute
[2019-01-13] MEDS: guaiFENesin 600 MG TAB.ER PO SCH ×2 (15:47→21:29)
[2019-01-13] MEDS ORDERED: ALBUTEROL 60 PUFFS/8 GM MDI IH PRN (16:49)
[2019-01-13] MEDS: DROSPIRENONE PO SCH (20:27)
[2019-01-13] MEDS: ETHINYL ESTRADIOL PO SCH (20:27)
[2019-01-13] MEDS: ALBUTEROL 3 ML DEYVIAL IH PRN (22:51)
[2019-01-14] MEDS: NS 1,000 ML IV SCH ×2 (00:26→07:10)
[2019-01-14] MEDS: HYDROmorphONE/DILAUDID 1 MG/ML INJ IVP PRN ×2 (04:52→18:15)
[2019-01-14 05:01] LABS: PLATELET COUNT 140 10^3/uL (150-400)
[2019-01-14] MEDS: guaiFENesin 600 MG TAB.ER PO SCH ×2 (08:35→20:30)
[2019-01-14] MEDS: oxyCODONE IR 5 MG TAB PO PRN ×3 (08:35→20:30)
[2019-01-14] MEDS: TAMSULOSIN HCL 0.4 MG CAP PO SCH (08:35)
[2019-01-14] MEDS: BUDESONIDE/FORMOTEROL 160/4.5 60 PUFFS/MDI IH SCH (08:44)
--- NOTE | 2019-01-14 11:35 | SOAPPROG ---
SOAP Progress Note Assessment/Plan: Assessment: Acute pyelonephritis Acute E. Coli with sepsis Hydronephrosis concurrent with and due to calculi of kidney and ureter Acute Ureterolithiasis Acute Plan: nephrostomy tube left, antibx, hydration, rx stone after pt improved,will hold off til sepsis resolved 01/14/19 11:33 Subjective: ok Objective: Vital Signs Temp Pulse Resp BP Pulse Ox 37.4 C 112 H 18 108/72 94 01/14/19 08:59 01/14/19 08:59 01/14/19 08:59 01/14/19 08:59 01/14/19 08:59 Microbiology 01/12/19 18:15 Gram Stain - Final Other - [facility] Laboratory Results 01/14/19 04:42 01/14/19 04:40 01/13/19 01/14/19 01/15/19 05:59 05:59 05:59 Intake Total 4500 2378 Output Total 1450 500 525 Balance 3050 1878 -525 PT 13.7 SEC (12.0-15.0) 01/12/19 19:10 INR 1.09 (0.83-1.16) 01/12/19 19:10 Physical Exam - Physical Exam General Appearance: alert Respiratory: No respiratory distress Cardiac/Chest: regular rate, rhythm Abdomen: non-tender, soft Back: No CVA tenderness Extremities: No calf tenderness, No Eboni's sign Neuro/Psych: oriented x 3 ICD10 Worksheet Patient Problems: Problems Problem Status Onset Acute pyelonephritis Acute Hydronephrosis concurrent with and due to calculi of kidney and ureter Acute Ureterolithiasis Acute - ICD10 Problem Qualifiers (1) Hydronephrosis concurrent with and due to calculi of kidney and ureter
--- NOTE | 2019-01-14 11:54 | HOSPPROG ---
Hospitalist Progress Note Assessment/Plan: 23 y/o female w/hx of nephrolithiasis and asthma presenting w/acute left sided flank pain and abdominal discomfort w/ nausea and vomiting. Imaging revealing left 5 mm proximal ureteral calculus resulting w/moderate hydronephrosis and bilateral nephrolithiasis. #Nephrolithiasis w/pyelonephritis: High white count (19.44) w/ left shift. Afebrile. Tachycardic meeting SIRS criteria - CT on admission showing 5 mm proximal L ureteral calculus resulting in moderate L hydronephrosis - Urology consulted on admission, recommending PCN insertion, s/p IR procedure on 01/12, will remove stone when sepsis resolved, likely Thursday 01/18 - Pain management PO/IVP PRN - Urine strain - Received 2L NS; will cont IVF - Received flomax: cont Sepsis - 11/14 to pyelonephritis as above - Blood cultures growing E Coli from admission, Urine cx growing E Colu as well - S/p Levaquin on admission, will switch to Ceftriaxone, f/u culture data - Consult ID this AM regarding bacteremia - Remains tachycardic this AM, will continue IVF at an increased rate overnight #Asthma: on inhalers. Cont. Diet: Regular diet after procedure VTE ppx: Low risk. Encourage OOB ad jocelyn, SCDs while in bed Code: Full Dispo: Pending clinical course Subjective: Pt reporting some pain in flank this AM Objective: Vital Signs Temp Pulse Resp BP Pulse Ox 37.1 C 105 H 20 102/72 93 01/14/19 11:29 01/14/19 11:29 01/14/19 11:29 01/14/19 11:29 01/14/19 11:29 Microbiology 01/12/19 18:15 Gram Stain - Final Other - [facility] Laboratory Results 01/14/19 04:42 01/14/19 04:40 01/13/19 01/14/19 01/15/19 05:59 05:59 05:59 Intake Total 4500 2378 Output Total 1450 500 525 Balance 3050 1878 -525 PT 13.7 SEC (12.0-15.0) 01/12/19 19:10 INR 1.09 (0.83-1.16) 01/12/19 19:10 - Physical Exam Constitutional: no apparent distress Eyes: PERRL Ears, Nose, Mouth, Throat: moist mucous membranes Cardiovascular: tachycardia Respiratory: clear to auscultation Gastrointestinal: soft, non-tender abdomen Genitourinary: No peña in urethra Skin: warm Musculoskeletal: full muscle strength Neurologic: AAOx3 Psychiatric: interacting appropriately ICD10 Worksheet Patient Problems: Problems Problem Status Onset Acute pyelonephritis Acute Hydronephrosis concurrent with and due to calculi of kidney and ureter Acute Ureterolithiasis Acute
--- NOTE | 2019-01-14 13:11 | PDCONSULT ---
[facility] Department Supervisor Note: Infectious Diseases Consult Note Impression: 23-year-old woman with E coli bacteremia, pyelonephritis, obstructive uropathy secondary to nephrolithiasis. Overall she has improved significantly with antibiotics and percutaneous nephrostomy tube drainage. She could be discharged on oral levofloxacin to bridge to urologic procedure if she is not suitable surgical candidate in the near term. It seems that the severity of the pain at the nephrostomy tube insertion site may be a limiting factor. 1. E coli bloodstream infection 2. Pyelonephritis due to E coli 3. Obstructive uropathy due to nephrolithiasis 4. Acute non blood loss anemia likely secondary to sepsis 5. Acute thrombocytopenia likely secondary to evolving sepsis Plan: 1. Continue ceftriaxone 2. Patient could be transitioned to oral levofloxacin if plan to discharge prior to undergoing urologic procedure 3. Reviewed in detail potential side effects of beta-lactam antibiotics to include: allergy, rash, nausea, antibiotic-associated diarrhea, Clostridioides difficile colitis. Luis Ratliff MD Infectious Diseases Chief Complaint: Abdominal pain Requesting Provider: Dr. Gill Reason for Referral: Consultation was requested by Dr. Gill regarding antimicrobial management. HPI: 23-year-old woman presented to hospital with the acute onset of severe abdominal pain found to be related to nephrolithiasis, pyelonephritis, and bacteremia. Chronology of Present Illness: Most recent date identified as normal health: 01/10/19 Location of symptoms: Abdomen and left flank Onset of symptoms: 01/11/2019 Initial signs/symptoms: Severe abdominal pain, fevers, chills Associated signs/symptoms at onset: No myalgias, arthralgias, diarrhea, cough, or headache; no rash Changes since onset: Overall improved with resolution of abdominal pain, she now has severe pain at the nephrostomy tube insertion site; decreased leukocytosis, improved appetite Exacerbating factors: Current pain at the nephrostomy tube insertion site exacerbated by movement Relieving factors: Remaining still and oral analgesia Antibiotics since symptom onset: Levofloxacin initially followed by ceftriaxone Change in symptoms with antibiotics: Overall improved with decreased septic parameters Relevant social history: States she feels her development of kidney stones is related to poor hydration including at times only drinking a dedicated couple water once per week Relevant PMHx/PSHx: This is the 2nd episode of nephrolithiasis Reviewed patient medical records in [facility], and [facility] ([facility] Travel history: Born in [place] but has lived in the [place] For the majority of her life Past Medical History: Nephrolisthesis Past Surgical History: Left percutaneous nephrostomy tube placement 01/12/2019 Social History: Does not use tobacco products; Does not consume marijuana products; Drinks alcohol socially; Does not use any other drugs currently or in the past Family History: No family members with recurrent infections; father has had kidney stones most recently over 12 years prior to this date Allergies: No known antibiotic allergies Medications: Reviewed in medical record and confirmed with patient. ROS: 10 organ systems reviewed; pertinent positives and negatives listed in the HPI, all other organ systems negative. Physical Exam: VS: Reviewed Gen: No acute distress; Breathing comfortably with supplemental oxygen; Able to speak in complete sentences Eyes: No conjunctival injection; No scleral icterus HENT: No gross deformities Neck: No limitation in range of motion Pulm: Audible inspiratory sounds to the bases bilaterally; No wheeze, rhonchi, or rales CV: Normal S1 and S2; Regular tachycardia; No murmurs, rubs, or gallops; No lower extremity edema Abd: Not distended; Normo-active bowel sounds; Soft; Non-tender Skin: A full skin exam including exposed bilateral upper extremities, bilateral lower extremities to the knees, face, neck, abdomen, chest, and back performed; Skin intact, warm, with no rash; nephrostomy tube insertion site posterior left flank without swelling of the dressing, tender to palpation, no erythema surrounding the dressing site MSK: Joints without erythema or edema; No gross limitation in range of motion Ext: No clubbing or cyanosis Neuro: Awake and alert Psych: Normal mood and blunted affect Labs/Imaging: All microbiology testing (culture and non-culture) reviewed in the medical record. Personally reviewed and interpreted the images of the following radiographs: CT of the abdomen from admission showing left-sided partially obstructing nephrolisthesis; chest x-ray from 01/13 showing essentially clear lung silverman Medications Generic Name Dose Route Start Last Admin Trade Name Freq PRN Reason Stop Dose Admin Ceftriaxone Sodium 2 gm/ 50 mls @ 100 mls/hr 01/13/19 09:30 01/14/19 08:36 Sodium Chloride IV 02/12/19 09:29 50 mls DAILY MANUELA Protocol Discontinued Medications Generic Name Dose Route Start Last Admin Trade Name Freq PRN Reason Stop Dose Admin Levofloxacin/Dextrose 150 mls @ 100 mls/hr 01/13/19 16:00 Levaquin 750 Mg (Premix) IV 02/12/19 15:59 Q24H MANUELA Protocol Levofloxacin/Dextrose 150 mls @ 100 mls/hr 01/12/19 15:17 01/12/19 16:46 Levaquin 750 Mg (Premix) IV 01/12/19 16:46 150 mls EDNOW ONE Protocol Microbiology 01/12/19 18:15 Other - [facility]irate Gram Stain - Final 01/12/19 14:35 Blood Blood Panel (PCR) - Final Escherichia Coli 01/12/19 09:41 Urine,Clean Catch Urine Culture - Final Escherichia Coli 01/12/19 18:15 Other - [facility] Anaerobic Culture - Preliminary Escherichia Coli 01/12/19 14:35 Blood Blood Culture - Preliminary 01/12/19 14:35 Blood Gram Negative Armando 01/12/19 14:32 Blood Blood Culture - Preliminary Gram Neg Armando Nonlactose Ferm. Laboratory Tests 01/12/19 01/14/19 10:30 04:42 WBC 19.44 H 12.45 H Hgb 14.3 10.7 L Plt Count 257 140 L Ongoing monitoring for antimicrobial toxicity with: CBC, BMP, interval historical information, and interval physical exam. [id number] time with patient: 48 minutes with >50% of [id number] time spent in counseling, patient education, and coordinating care. Counseling provided included the microbiology of E coli urinary tract infections, E coli bloodstream infections, complications of recurrent urinary tract infections in the setting of obstructive uropathy, expected time to resolution, natural history without treatment, and side effects of treatment.
[2019-01-14] MEDS: DROSPIRENONE PO SCH (20:24)
[2019-01-14] MEDS: ETHINYL ESTRADIOL PO SCH (20:24)
[2019-01-14] MEDS: ALBUTEROL 3 ML DEYVIAL IH PRN (21:19)
[2019-01-15] MEDS: oxyCODONE IR 5 MG TAB PO PRN ×3 (03:48→20:02)
[2019-01-15] MEDS: TAMSULOSIN HCL 0.4 MG CAP PO SCH (09:00)
[2019-01-15] MEDS: guaiFENesin 600 MG TAB.ER PO SCH ×2 (11:21→20:01)
[2019-01-15] MEDS: BUDESONIDE/FORMOTEROL 160/4.5 60 PUFFS/MDI IH SCH ×2 (11:31→20:44)
--- NOTE | 2019-01-15 13:42 | ASMTCMCOM ---
CM Note CM Note Notes: Pt continues to remain in hospital, continues to have pain. CM met with her and she was speaking with her dad and tearful. Pt care discussed in rounds, ID consulted. Possible surgery to remove stone on Friday. CM to follow. Plan: TBD Date Signed: 01/15/2019 01:41 PM Electronically Signed By:SHAVON Dailey
--- NOTE | 2019-01-15 14:30 | SOAPPROG ---
SOAP Progress Note Assessment/Plan: Assessment: Acute pyelonephritis Acute E. Coli with sepsis Hydronephrosis concurrent with and due to calculi of kidney and ureter Acute Ureterolithiasis Acute Plan: nephrostomy tube left, antibx, hydration, may internalize tube to stent and remove stone next week after sepsis resolved and pt recovered 01/15/19 14:28 Subjective: better Objective: Vital Signs Temp Pulse Resp BP Pulse Ox 37.1 C 102 H 20 104/74 91 L 01/15/19 11:24 01/15/19 11:24 01/15/19 11:24 01/15/19 11:24 01/15/19 11:24 Microbiology 01/12/19 18:15 Gram Stain - Final Other - [facility] Laboratory Results 01/14/19 04:42 01/14/19 04:40 01/14/19 01/15/19 01/16/19 05:59 05:59 05:59 Intake Total 2378 1450 Output Total 500 2225 750 Balance 1878 -775 -750 PT 13.7 SEC (12.0-15.0) 01/12/19 19:10 INR 1.09 (0.83-1.16) 01/12/19 19:10 Physical Exam - Physical Exam General Appearance: alert Neck: supple Respiratory: No respiratory distress Cardiac/Chest: tachycardia Abdomen: soft Back: No CVA tenderness ICD10 Worksheet Patient Problems: Problems Problem Status Onset Acute pyelonephritis Acute Hydronephrosis concurrent with and due to calculi of kidney and ureter Acute Ureterolithiasis Acute - ICD10 Problem Qualifiers (1) Hydronephrosis concurrent with and due to calculi of kidney and ureter
[2019-01-15] MEDS: NS 1,000 ML IV SCH (14:42)
[2019-01-15] MEDS: HYDROmorphONE/DILAUDID 1 MG/ML INJ IVP PRN ×2 (14:43→19:33)
--- NOTE | 2019-01-15 15:55 | PCMIDPN ---
Assessment/Plan: # Sepsis due to E coli bloodstream infection from obstructive uropathy leading to pyelonephritis. Sepsis basically resolved although she still has tachycardia today (suspect due to pain) and significant left flank pain. WBC significantly improving. --continue IV ceftriaxone --awaiting surgical intervention to remove obstruction, until that time nephrostomy remains in place, tentative Friday --call ID over weekend if plans for dc but suspect will be in house till Friday due to persistent flank pain --could use PO levoflox or bactrim but did not discuss with patient today because of ongoing severe pain, did not feel she could process this info Microbiology 01/12/19 14:35 Blood Cx 11/14: Escherichia Coli 01/12/19 09:41 Urine, Cx: Escherichia Coli 01/12/19 18:15 L kidney: Escherichia Coli Meds Ceftriaxone 2gm IV daily, 01/13- levoflox x 1 on 01/12/19 Subjective: denies side effects from ceftriaxone - states she prefers IV abx and has difficult tolerating PO abx No rash, itching severe L sided flank pain - so severe she is EXTREMELY reluctant to even roll to right side Objective: Vital Signs Temp Pulse Resp BP Pulse Ox 37.1 C 102 H 20 104/74 91 L 01/15/19 11:24 01/15/19 11:24 01/15/19 11:24 01/15/19 11:24 01/15/19 11:24 Microbiology 01/12/19 18:15 Gram Stain - Final Other - [facility] Laboratory Results 01/14/19 04:42 01/14/19 04:40 01/14/19 01/15/19 01/16/19 05:59 05:59 05:59 Intake Total 2378 1450 Output Total 500 2225 750 Balance 9262 -044 -114 - Physical Exam General Appearance: alert, apparent distress (due to pain), thin EENT: No thrush Respiratory: lungs clear, No accessory muscle use Neck: supple Cardiac/Chest: tachycardia Extremities: No pedal edema Abdomen: normal bowel sounds, non-tender, soft, No peritoneal signs Pelvic Exam: other (refused eval of back but L nephrostomy tube bag w clear urine) Skin: warm/dry, No rash Neuro/Psych: alert, normal mood/affect, oriented x 3 - Time Spent With Patient Time Spent with Patient: greater than 25 minutes Time Spent with Patient: Greater than 25 minutes spent on this patients care, greater than 50% of time spent counseling, educating, and coordinating care regarding the above mentioned plan. ICD10 Worksheet Patient Problems: Problems Problem Status Onset Acute pyelonephritis Acute Hydronephrosis concurrent with and due to calculi of kidney and ureter Acute Ureterolithiasis Acute
[2019-01-15] MEDS ORDERED: fentaNYL 100 MCG/2 ML INJ IVP PRN (16:08)
[2019-01-15] MEDS ORDERED: NALOXONE HCL 0.4 MG/ML INJ IVP PRN (16:08)
[2019-01-15] MEDS ORDERED: MEPERIDINE 25 MG/ML SYR IVP PRN (16:08)
[2019-01-15] MEDS ORDERED: fentaNYL 100 MCG/2 ML INJ ONE (16:10)
[2019-01-15] MEDS ORDERED: NS 1,000 ML IV SCH (16:15)
[2019-01-15] MEDS ORDERED: IOPAMIDOL (ISOVUE-300) 100 ML BTL ONE (17:11)
--- NOTE | 2019-01-15 17:49 | HOSPPROG ---
Hospitalist Progress Note Assessment/Plan: 23 y/o female w/hx of nephrolithiasis and asthma presenting w/acute left sided flank pain and abdominal discomfort w/ nausea and vomiting. Imaging revealing left 5 mm proximal ureteral calculus resulting w/moderate hydronephrosis and bilateral nephrolithiasis. #Nephrolithiasis w/pyelonephritis: High white count (19.44) w/ left shift. Afebrile. Tachycardic meeting SIRS criteria - CT on admission showing 5 mm proximal L ureteral calculus resulting in moderate L hydronephrosis - Urology consulted on admission, recommending PCN insertion, s/p IR procedure on 01/12, will remove stone when sepsis resolved, likely Thursday 01/18 - Pain management PO/IVP PRN - Urine strain - Received 2L NS; will cont IVF - Received flomax: cont Sepsis - 11/14 to pyelonephritis as above - Blood cultures growing E Coli from admission, Urine cx growing E Colu as well - S/p Levaquin on admission, will switch to Ceftriaxone, f/u culture data - Consulted ID, recommended continuing ceftriaxone while inpatient #Asthma: on inhalers. Cont. Diet: Regular diet VTE ppx: Low risk. Encourage OOB ad jocelyn, SCDs while in bed Code: Full Dispo: Pending clinical course Subjective: Pt reports severe L sided flank pain with movement Objective: Vital Signs Temp Pulse Resp BP Pulse Ox 37.1 C 108 H 17 105/68 97 01/15/19 11:24 01/15/19 16:02 01/15/19 16:02 01/15/19 16:57 01/15/19 16:57 Microbiology 01/12/19 18:15 Gram Stain - Final Other - [facility] Laboratory Results 01/14/19 04:42 01/14/19 04:40 01/14/19 01/15/19 01/16/19 05:59 05:59 05:59 Intake Total 2378 1450 325 Output Total 500 2225 750 Balance 1545 -610 -909 PT 13.7 SEC (12.0-15.0) 01/12/19 19:10 INR 1.09 (0.83-1.16) 01/12/19 19:10 - Physical Exam Constitutional: uncomfortable Eyes: PERRL Ears, Nose, Mouth, Throat: moist mucous membranes Cardiovascular: regular rate and rhythym Respiratory: no respiratory distress Gastrointestinal: soft, non-tender abdomen Skin: warm Musculoskeletal: full muscle strength Neurologic: AAOx3 Psychiatric: interacting appropriately ICD10 Worksheet Patient Problems: Problems Problem Status Onset Acute pyelonephritis Acute Hydronephrosis concurrent with and due to calculi of kidney and ureter Acute Ureterolithiasis Acute
[2019-01-15] MEDS: ALBUTEROL 3 ML DEYVIAL IH PRN (20:43)
[2019-01-15] MEDS: ETHINYL ESTRADIOL PO SCH (22:07)
[2019-01-15] MEDS: DROSPIRENONE PO SCH (22:07)
[2019-01-16] MEDS: oxyCODONE IR 5 MG TAB PO PRN ×5 (03:39→20:26)
[2019-01-16] MEDS: ACETAMINOPHEN 325 MG TAB PO PRN ×2 (03:39→20:27)
[2019-01-16] MEDS: TAMSULOSIN HCL 0.4 MG CAP PO SCH (09:30)
[2019-01-16] MEDS: guaiFENesin 600 MG TAB.ER PO SCH ×3 (09:30→20:26)
[2019-01-16] MEDS: BUDESONIDE/FORMOTEROL 160/4.5 60 PUFFS/MDI IH SCH (09:32)
[2019-01-16] MEDS ORDERED: POTASSIUM CL 20 MEQ TAB PO ONE (11:01)
[2019-01-16] MEDS ORDERED: BISACODYL 10 MG SUPP PR PRN (12:11)
[2019-01-16] MEDS ORDERED: BENZONATATE 100 MG CAP PO PRN (12:11)
[2019-01-16] MEDS ORDERED: LACTULOSE 20 GM/30 ML UDCUP PO PRN (12:11)
[2019-01-16] MEDS ORDERED: MAGNESIUM HYDROXIDE 30 ML UDCUP PO PRN (12:11)
[2019-01-16] MEDS ORDERED: POLYETHYLENE GLYCOL 3350 17 GM PKT PO PRN (12:11)
[2019-01-16] MEDS: NS 1,000 ML IV SCH (13:17)
--- NOTE | 2019-01-16 18:50 | HOSPPROG ---
Hospitalist Progress Note Assessment/Plan: The patient is a 23-year-old female with PMH kidney stones who was admitted for left ureterolithiasis with pyelonephritis and hydronephrosis. ASSESSMENT/PLAN: Nephrolithiasis, bilateral Left hydronephrosis Left pyelonephritis E coli bacteremia, 2/2 above Left ureterolithiasis, s/p stent Left flank pain, uncontrolled Seasonal allergies Moderate asthma Anemia, mild Sepsis, resolved -DC IVF -Continue prn analgesics/antiemetics -Send stone to lab for analysis - FU results. -If pain is well controlled tomorrow, may DC w/ po Abx/analgesics. -plan for stent to be removed on Friday -resume patient's Breo Ellipta- sent Rx to pharmacy. For now, continue SVNs/ Symbicort. VTE prophylaxis: SCDs. Code Status: Full code. Status: Inpatient for > 2 midnight stay. [place] [facility] [place] in the next 1-2 days if pain is adequately controlled ____ SUBJECTIVE: Today patient continues to have left flank pain. She believes she passed a stone. OBJECTIVE: Physical Exam: General: The patient is a female who is alert and in no acute distress. HEENT: normocephalic, extraocular movements intact, conjunctivae clear. Mucous membranes moist. Neck: trachea midline, no visible masses. CV: +S1/S2, RRR, no MRG. Resp: unlabored. CTAB no RR. + and expiratory wheezing bilaterally. Abd: soft and nondistended. Musculoskeletal: Normal muscle tone/bulk. Neuro: cranial nerves II - XII grossly intact. Intact gross motor and sensory function. Psych: Appropriate mood and appropriate affect. Skin: No pallor. No petechiae. Heme/lymph: No peripheral edema at bilateral lower extremities. : Dressing L flank CDI. +L flank tenderness. Labs/Imaging/Other Tests: Personally reviewed/interpreted. Objective: Vital Signs Temp Pulse Resp BP Pulse Ox 36.6 C 106 H 18 116/67 95 01/16/19 17:07 01/16/19 17:07 01/16/19 17:07 01/16/19 17:07 01/16/19 17:07 Microbiology 01/16/19 13:05 Respiratory Panel (PCR) - Final Nasal, Sinus - Swab No Organism Detected By Pcr 01/12/19 18:15 Gram Stain - Final Other - [facility] Laboratory Results 01/16/19 04:34 01/16/19 04:34 01/15/19 01/16/19 01/17/19 05:59 05:59 05:59 Intake Total 1450 1675 1818 Output Total 2225 1450 2225 Balance -775 225 -407 PT 13.7 SEC (12.0-15.0) 01/12/19 19:10 INR 1.09 (0.83-1.16) 01/12/19 19:10 - Time Spent With Patient Time Spent with Patient: greater than 35 minutes Time Spent with Patient: Greater than 35 minutes spent on this patients care, greater than 50% of time spent counseling, educating, and coordinating care regarding the above mentioned plan. ICD10 Worksheet Patient Problems: Problems Problem Status Onset Acute pyelonephritis Acute Hydronephrosis concurrent with and due to calculi of kidney and ureter Acute Ureterolithiasis Acute
[2019-01-16] MEDS: SENNOSIDES/DOCUSATE SODIUM TAB PO SCH (20:26)
[2019-01-16] MEDS: DROSPIRENONE PO SCH (20:29)
[2019-01-16] MEDS: ETHINYL ESTRADIOL PO SCH (20:29)
[2019-01-16] MEDS: ALBUTEROL 3 ML DEYVIAL IH PRN (21:44)
[2019-01-17] MEDS: oxyCODONE IR 5 MG TAB PO PRN ×3 (04:11→15:06)
[2019-01-17] MEDS: BUDESONIDE/FORMOTEROL 160/4.5 60 PUFFS/MDI IH SCH (09:05)
[2019-01-17] MEDS: SENNOSIDES/DOCUSATE SODIUM TAB PO SCH (09:26)
[2019-01-17] MEDS: TAMSULOSIN HCL 0.4 MG CAP PO SCH (09:26)
[2019-01-17] MEDS: guaiFENesin 600 MG TAB.ER PO SCH (09:26)
[2019-01-17 15:21] VITALS: BP 121/81
--- NOTE | 2019-01-17 15:24 | PDDCSUM ---
Discharge Summary Discharge Summary: Date of Admission: 01/12/2019 Date of Discharge: 01/17/2019 Discharge Diagnoses: Left Obstructive ureterolithiasis, resolved Bilateral nephrolithiasis Acute left pyelonephritis, resolving E coli bacteremia Left hydronephrosis Left flank pain, secondary to ureteral stent Moderate asthma associated with seasonal allergies Anemia, mild Sepsis, resolved Constipation, opiate induced Admission Diagnoses: Acute pyelonephritis Hydronephrosis Ureterolithiasis, acute Consultants: Urology-Dr. Lala Hospital Course: The patient is a 23-year-old female with a history of nephrolithiasis who presented with acute abdominal pain and left-sided flank pain. She was found to have a 5 mm proximal left ureteral calculus resulting in moderate left hydronephrosis. She was found to have sepsis secondary to a UTI. Patient was admitted for IV fluids, IV antibiotics, pain control, and urologic consultation. Initially the patient underwent a left nephrostomy insertion. Blood cultures and urine culture grew E coli which was sensitive to ceftriaxone , which the patient received daily throughout hospitalization. Surgery for stone removal and stent placement was planned by Urology for January 18. However, Interventional Radiology performed ureteral stent placement and removed the nephrostomy tube on FridayJanuary 15. The next day, the patient passed the 5 mm stone in her urine. The passed stone was witnessed by the patient, physician, and RN. This stone was sent to the laboratory for analysis. Patient was medically stable and was discharged home with instructions to follow up with Urology on FridayJanuary 22 for ureteral stent removal. Patient was provided with multiple prescription medications including a course of Bactrim DS for 1 week and analgesics/urologic medications for the stent. On another note, patient complained of asthma and wheezing secondary to seasonal allergies, which she gets every year. She was put on some asthma medications in the hospital. She refused to take Symbicort and only wanted Breo Ellipta, saying she had tried all other asthma medications in the past. Unfortunately this medication was not on the formulary, but a prescription for Breo Ellipta was sent to her pharmacy. The medication does require a prior authorization, which was initiated, but takes at least a few days to be approved. Patient was recommended to establish care with a PCP soon to address this issue, among other needs. Condition: Stable. Discharged to: Home. Pertinent tests/labs/imaging: * Blood cultures x2, urine culture, aspirated urine culture: Positive for E coli which is sensitive to ceftriaxone, Bactrim, levofloxacin, Zosyn, carbapenems. * CT abd/pel w/o contrast: 5 mm proximal left ureteral calculus resulting in moderate left hydronephrosis. Bilateral nephrolithiasis (small nonobstructing calculi between 1-3mm in R kidney and a 1 mm calclus in L mid kidney). * Stone analysis: pending. * Chest x-ray-mild peribronchial thickening consistent with asthma. * Respiratory pathogen PCR panel-negative for organisms. Medications: Please see med rec form. Provided patient with the following prescriptions: Oxybutynin, phenazopyridine, Flomax, oxycodone, Senokot. Bactrim DS BID x 1 week. Jd Meeks sent per patient request. Special instructions: For stent pain: use ibuprofen, phenazopyridine, tamsulosin, and oxybutynin. Oxybutynin may be taken 2-3 times a day. Only take oxycodone if pain is not controlled with aforementioned medicines. Continue antibiotic for 1 more week - Bactrim DS. Return to ED for intractable nausea/vomiting, uncontrolled pain, and/or other concerning symptoms. Seek medical attention for any worsening of current medical condition, any new un-resolving pain, lasting fever greater than 100.4, any signs or symptoms of infection, or any other medical concerns. Prior authorization in the hospital was submitted for Jd, but it will likely take several days. Follow up: Urology - Dr. Adiel Lala - in 5-7 days for stent removal. PCP in 1 week. > 30 minutes of total time was spent on counseling and coordination of care for this patient's discharge.
--- NOTE | 2019-01-17 15:27 | ASMTLACE ---
LACE Length of stay for Answers: 4-6 days current admission Acuity / Level of Answers: Yes Care: Did the patient have an inpatient admission? Comorbidities - select Answers: Chronic pulmonary disease all that apply Other Notes: Nephrolithiasis # of Emergency department Answers: 1-2 visits in the last 6 months Score: 11 Date Signed: 01/17/2019 03:27 PM Electronically Signed By:Michelle Nick RN
--- NOTE | 2019-01-17 15:29 | ASMTDCNOTE ---
Case Management Discharge Discharge Order Complete? Answers: Yes Patient to Obtain Answers: Independently Medications Transportation Arranged Answers: Family/Friends Family Notified Answers: Yes Discharge Comments Notes: Patient has been medically cleared for independent discharge to home. No needs, CM available should needs arise. Date Signed: 01/17/2019 03:29 PM Electronically Signed By:Michelle Nick RN
== END 2019-01-17 17:29 | disposition home or self-care (01) | DRG 872 ==
LOC: OBSVTOIN 15:08 → F3N 15:44 → F1N 15:48 → UNDODISIN 01-17 16:04
PROVIDERS: ADMIT Internal Medicine; ATTEND Internal Medicine
PROC: 0T9130Z Drainage of Left Kidney with Drainage Device, Percutaneous Approach (ICD-10-PCS; principal; 2019-01-12)
PROC: 0T773DZ Dilation of Left Ureter with Intraluminal Device, Percutaneous Approach (ICD-10-PCS; 2019-01-15)
PROC: 0T9130Z Drainage of Left Kidney with Drainage Device, Percutaneous Approach (ICD-10-PCS; 2019-01-15)
DX: A41.51 Sepsis due to Escherichia coli [E. coli] (principal); N20.2 Calculus of kidney with calculus of ureter; R78.81 Bacteremia; N13.6 Pyonephrosis; J45.909 Unspecified asthma, uncomplicated; D64.9 Anemia, unspecified; K59.03 Drug induced constipation
CPT/HCPCS: 82365-90; 82435-PO; 82565-PO; 82947-PO; 84132-PO; 84295-PO; 84520-PO; 85014-ER; 96374; C1729; C1758; C1769; J0696; J1170; J1630; J1885; J1956; J2060; J2250; J2310; J3010; J7613; Q9967